=== PATIENT | male | born 1970 | race American Indian/Alaskan Native ===

== ENCOUNTER 2018-11-16 00:39 | Emergency (ER) | payer SELFPAY ==
[2018-11-16 01:38] LABS: Basophils % (Auto) 0.5 % (0.0-1.8); Eosinophils # (Auto) 0.3 K/mm3 (0.0-0.4); Eosinophils % (Auto) 5.6 % (0.0-4.3); Hematocrit 41.2 % (35.5-45.6); Lymphocytes # (Auto) 2.1 K/mm3 (1.2-5.4); Lymphocytes % (Auto) 40.6 % (13.4-35.0); Mean Corpuscular HGB Conc 34 % (32-34); Mean Corpuscular Volume 93 fl (84-94); Monocytes # (Auto) 0.5 K/mm3 (0.0-0.8); Monocytes % (Auto) 9.7 % (0.0-7.3); Platelet Count 250 K/mm3 (140-440); Red Blood Count 4.43 M/mm3 (3.65-5.03); Red Cell Distribution Width 13.5 % (13.2-15.2)
--- NOTE | 2018-11-16 01:39 | XRay Report ---
FINAL REPORT EXAM: XR CHEST ROUTINE 2V HISTORY: Shortness of breath TECHNIQUE: PA and lateral views of the chest were submitted. Comparison is made to the study of 01/2019. FINDINGS: The heart is mildly enlarged. The lungs are clear. There is no evidence of congestion or effusion. Sk eletal structures are well-maintained. IMPRESSION: No acute cardiopulmonary process.
[2018-11-16 01:58] LABS: BUN/Creatinine Ratio 11; Blood Urea Nitrogen 12 mg/dL (9-20); Calcium 9.2 mg/dL (8.4-10.2); Hemolysis Index 9
--- NOTE | 2018-11-16 02:59 | Emergency Department Report ---
ED General Adult HPI - General Chief complaint: Dyspnea/Respdistress Stated complaint: SOB,LEG PAIN Time Seen by Provider: 11/16/18 02:58 Source: patient Mode of arrival: Ambulatory Limitations: No Limitations - History of Present Illness Initial comments: Patient is a 48-year-old male who presents with shortness of breath at some golf last 3 days so complains of leg pain and abscess 6 out 10. Denies any nausea or vomiting he's also states that he has some shortness of breath on exertion. Patient states that he was admitted to the hospital for similar findings and he was not diagnosed with heart failure. Patient does not smoke or drink. Patient states that his pain as a 7 out of 10. It is an achy type of pain on walking makes it worse nothing makes it better. He states he has some slight swelling in his legs. - Related Data Previous Rx's Medication Instructions Recorded Last Taken Type Ciprofloxacin HCl [Ciprofloxacin 250 mg PO BID #20 tablet 11/03/18 Unknown Rx TAB] Zolpidem [Ambien] 5 mg PO QHS PRN #10 tablet 11/03/18 Unknown Rx traMADol [Ultram 50 MG tab] 50 mg PO Q6HR PRN #7 tablet 11/16/18 Unknown Rx Allergies Allergy/AdvReac Type Severity Reaction Status Date / Time No Known Allergies Allergy Unverified 10/31/18 21:37 ED Review of Systems ROS: Stated complaint: SOB,LEG PAIN Other details as noted in HPI Constitutional: denies: chills, fever Eyes: denies: eye pain, eye discharge, vision change ENT: denies: ear pain, throat pain Respiratory: shortness of breath. denies: cough, wheezing Cardiovascular: denies: chest pain, palpitations Endocrine: no symptoms reported Gastrointestinal: denies: abdominal pain, nausea, diarrhea Genitourinary: denies: urgency, dysuria Musculoskeletal: denies: back pain, joint swelling, arthralgia Skin: denies: rash, lesions Neurological: denies: headache, weakness, paresthesias Psychiatric: denies: anxiety, depression Hematological/Lymphatic: denies: easy bleeding, easy bruising ED Past Medical Hx - Past Medical History Hx Heart Attack/AMI: Yes Hx Congestive Heart Failure: No Hx Diabetes: No Hx Asthma: No Hx COPD: No - Surgical History Additional Surgical History: stent - Social History Smoking Status: Never Smoker Substance Use Type: None - Medications Home Medications: Home Medications Medication Instructions Recorded Confirmed Last Taken Type Ciprofloxacin HCl [Ciprofloxacin 250 mg PO BID #20 tablet 11/03/18 Unknown Rx TAB] Zolpidem [Ambien] 5 mg PO QHS PRN #10 tablet 11/03/18 Unknown Rx traMADol [Ultram 50 MG tab] 50 mg PO Q6HR PRN #7 tablet 11/16/18 Unknown Rx ED Physical Exam - General Limitations: No Limitations General appearance: alert, in no apparent distress - Head Head exam: Present: atraumatic, normocephalic - Eye Eye exam: Present: normal appearance - ENT ENT exam: Present: mucous membranes moist - Neck Neck exam: Present: normal inspection - Respiratory Respiratory exam: Present: normal lung sounds bilaterally. Absent: respiratory distress - Cardiovascular Cardiovascular Exam: Present: regular rate, normal rhythm. Absent: systolic murmur, diastolic murmur, rubs, gallop - GI/Abdominal GI/Abdominal exam: Present: soft, normal bowel sounds - Rectal Rectal exam: Present: deferred - Extremities Exam Extremities exam: Present: normal inspection - Back Exam Back exam: Present: normal inspection - Neurological Exam Neurological exam: Present: alert, oriented X3 - Psychiatric Psychiatric exam: Present: normal affect, normal mood - Skin Skin exam: Present: warm, dry, intact, normal color. Absent: rash ED Course Vital Signs 11/16/18 11/16/18 00:47 04:12 Temperature 97.7 F Pulse Rate 82 Respiratory 20 20 Rate Blood Pressure 123/84 O2 Sat by Pulse 96 100 Oximetry ED Medical Decision Making - Lab Data Result diagrams: 11/16/18 01:30 11/16/18 01:30 Lab Results 11/16/18 11/16/18 11/16/18 Range/Units 01:30 01:30 04:00 WBC 5.1 (4.5-11.0) K/mm3 RBC 4.43 (3.65-5.03) M/mm3 Hgb 14.0 (11.8-15.2) gm/dl Hct 41.2 (35.5-45.6) % MCV 93 (84-94) fl MCH 32 (28-32) pg MCHC 34 (32-34) % RDW 13.5 (13.2-15.2) % Plt Count 250 (140-440) K/mm3 Lymph % (Auto) 40.6 H (13.4-35.0) % [place] % (Auto) 9.7 H (0.0-7.3) % Eos % (Auto) 5.6 H (0.0-4.3) % Baso % (Auto) 0.5 (0.0-1.8) % Lymph # 2.1 (1.2-5.4) K/mm3 [place] # 0.5 (0.0-0.8) K/mm3 Eos # 0.3 (0.0-0.4) K/mm3 Baso # 0.0 (0.0-0.1) K/mm3 Seg Neutrophils % 43.6 (40.0-70.0) % Seg Neutrophils # 2.2 (1.8-7.7) K/mm3 Sodium 143 (137-145) mmol/L Potassium 3.7 (3.6-5.0) mmol/L Chloride 102.5 (98-107) mmol/L Carbon Dioxide 26 (22-30) mmol/L Anion Gap 18 mmol/L BUN 12 (9-20) mg/dL Creatinine 1.1 (0.8-1.5) mg/dL Estimated GFR > 60 ml/min BUN/Creatinine Ratio 11 % Glucose 145 H (75-100) mg/dL Calcium 9.2 (8.4-10.2) mg/dL Troponin T < 0.010 (0.00-0.029) ng/mL - EKG Data -: EKG Interpreted by Pa - EKG Data 11/16/18 05:01 KG shows normal sinus rhythm no ST segment elevation or T wave inversion normal axis - Radiology Data Radiology results: report reviewed, image reviewed Chest x-ray: Shows no acute cardiopulmonary disease - Medical Decision Making Chief medical diagnosis: Myalgia Differential medical diagnosis: Arrhythmia, electrolyte abnormality, congestive heart failure CBC, BMP, chest x-ray, troponin and oral pain medicine Patient's laboratory workup was unremarkable patient has no pitting edema and when he was admitted a couple weeks ago he was not diagnosed apart patient is feeling better I have discussed with patient the importance of following up with his underwriting account representative and a primary care doctor. Discussed palpation patient agrees with plan additional verbal discharge instructions were given. Critical care attestation.: If time is entered above; I have spent that time in minutes in the direct care of this critically ill patient, excluding procedure time. ED Disposition Clinical Impression: Leg pain Qualifiers: Laterality: bilateral Qualified Code(s): M79.604 - Pain in right leg; M79.605 - Pain in left leg Disposition: - TO HOME OR SELFCARE Is pt being admited?: No Does the pt Need Aspirin: No Condition: Stable Instructions: Arthralgia (ED) Prescriptions: traMADol [Ultram 50 MG tab] 50 mg PO Q6HR PRN #7 tablet PRN Reason: Pain Referrals: XAVI EMMANUEL MD [Primary Care Provider] - 3-5 Days
[2018-11-16] MEDS ORDERED: PERCOCET 5/325 PO ONE (03:26)
[2018-11-16] MEDS ORDERED: LANTUS SUB-Q ONE (04:03)
[2018-11-16 05:34] VITALS: BP 107/71
== END 2018-11-16 05:41 | disposition home or self-care (01) ==
LOC: ED 00:39
DX: M79.604 Pain in right leg (principal); M79.605 Pain in left leg; R06.02 Shortness of breath; I25.2 Old myocardial infarction
CPT/HCPCS: 36415; 71046; 80048; 84484; 85025; 93005; 93010

== ENCOUNTER 2019-09-12 17:51 | Emergency (ER) | payer SELFPAY ==
[2019-09-12] MEDS ORDERED: ASPIRIN 325 MG TAB PO ONE (18:21)
--- NOTE | 2019-09-12 19:43 | XRay Report ---
CHEST 2 VIEWS INDICATION / CLINICAL INFORMATION: Chest Pain. COMPARISON: 11/16/2018 FINDINGS: SUPPORT DEVICES: None. HEART / MEDIASTINUM: No significant abnormality. LUNGS / PLEURA: No significant pulmonary or pleural abnormality. No pneumothorax. ADDITIONAL FINDINGS: No significant additional findings. IMPRESSION: 1. No acute findings. Signer Name: Chad Dacosta MD Signed: 09/12/2019 7:38 PM Workstation Name: [id number]
[2019-09-12 20:03] LABS: Basophils # (Auto) 0.1 K/mm3 (0.0-0.1); Basophils % (Auto) 0.8 % (0.0-1.8); Eosinophils # (Auto) 0.3 K/mm3 (0.0-0.4); Eosinophils % (Auto) 3.7 % (0.0-4.3); Hematocrit 42.4 % (35.5-45.6); Hemoglobin 14.6 gm/dl (11.8-15.2); Lymphocytes # (Auto) 2.7 K/mm3 (1.2-5.4); Lymphocytes % (Auto) 35.5 % (13.4-35.0); Mean Corpuscular HGB Conc 35 % (32-34); Mean Corpuscular Volume 92 fl (84-94); Monocytes # (Auto) 0.8 K/mm3 (0.0-0.8); Monocytes % (Auto) 10.6 % (0.0-7.3); Platelet Count 269 K/mm3 (140-440); Red Blood Count 4.62 M/mm3 (3.65-5.03); Red Cell Distribution Width 13.6 % (13.2-15.2)
[2019-09-12 20:20] LABS: BUN/Creatinine Ratio 10; Blood Urea Nitrogen 15 mg/dL (9-20); Calcium 9.9 mg/dL (8.4-10.2); Hemolysis Index 37
--- NOTE | 2019-09-12 21:24 | Emergency Department Report ---
ED General Adult HPI - General Chief complaint: Dyspnea/Respdistress Stated complaint: CHEST PAIN/LEG PAIN Time Seen by Provider: 09/12/19 20:58 Source: patient Mode of arrival: Ambulatory Limitations: No Limitations - History of Present Illness Initial comments: 48-year-old male presents to ED with multiple complaints. Patient reports wheezing in his throat since yesterday. He denies sore throat, body aches, fever, cough, or history of asthma. He denies any difficulty breathing at this time. Patient also reports pain in bilateral knees times one month. Patient states the pain does not last very long, however he experiences the pain whenever he is from sitting to standing, or when he sits for long periods of time. Patient denies any knee pain currently. Patient also reports chest pain upon arriving to the ER that lasted for 30 minutes, currently resolved. He denies any associated shortness of breath, diaphoresis, nausea. Location: chest, left, right, lower extremity Quality: aching Consistency: intermittent Improves with: immobilization Associated Symptoms: chest pain, headaches. denies: cough, diaphoresis, fever/chills, nausea/vomiting, shortness of breath Treatments Prior to Arrival: none - Related Data Previous Rx's Medication Instructions Recorded Last Taken Type Ciprofloxacin HCl [Ciprofloxacin 250 mg PO BID #20 tablet 11/03/18 Unknown Rx TAB] Zolpidem [Ambien] 5 mg PO QHS PRN #10 tablet 11/03/18 Unknown Rx traMADoL [Ultram 50 MG tab] 50 mg PO Q6HR PRN #7 tablet 11/16/18 Unknown Rx Albuterol Sulfate [Proventil Hfa] 2 puff IH Q4HR PRN #1 hfa.aer.ad 09/12/19 Unknown Rx Naproxen [Naprosyn] 500 mg PO BID #20 tablet 09/12/19 Unknown Rx traMADoL [Ultram] 50 mg PO Q6HR PRN #7 tablet 09/12/19 Unknown Rx Allergies Allergy/AdvReac Type Severity Reaction Status Date / Time No Known Allergies Allergy Verified 09/12/19 18:21 ED Review of Systems ROS: Stated complaint: CHEST PAIN/LEG PAIN Other details as noted in HPI Comment: All other systems reviewed and negative Constitutional: denies: chills, fever ENT: denies: throat pain Respiratory: wheezing. denies: cough, shortness of breath Cardiovascular: chest pain Gastrointestinal: denies: abdominal pain, nausea, vomiting Musculoskeletal: arthralgia Neurological: headache ED Past Medical Hx - Past Medical History Hx Heart Attack/AMI: Yes Hx Congestive Heart Failure: No Hx Diabetes: No Hx Asthma: No Hx COPD: No - Surgical History Past Surgical History?: Yes Additional Surgical History: stent - Social History Smoking Status: Never Smoker Substance Use Type: None - Medications Home Medications: Home Medications Medication Instructions Recorded Confirmed Last Taken Type Ciprofloxacin HCl [Ciprofloxacin 250 mg PO BID #20 tablet 11/03/18 Unknown Rx TAB] Zolpidem [Ambien] 5 mg PO QHS PRN #10 tablet 11/03/18 Unknown Rx traMADoL [Ultram 50 MG tab] 50 mg PO Q6HR PRN #7 tablet 11/16/18 Unknown Rx Albuterol Sulfate [Proventil Hfa] 2 puff IH Q4HR PRN #1 hfa.aer.ad 09/12/19 Unknown Rx Naproxen [Naprosyn] 500 mg PO BID #20 tablet 09/12/19 Unknown Rx traMADoL [Ultram] 50 mg PO Q6HR PRN #7 tablet 09/12/19 Unknown Rx ED Physical Exam - General Limitations: No Limitations General appearance: alert, in no apparent distress - Head Head exam: Present: atraumatic, normocephalic - Eye Eye exam: Present: normal appearance, PERRL, EOMI - ENT ENT exam: Present: normal orophraynx, mucous membranes moist - Neck Neck exam: Present: normal inspection - Respiratory Respiratory exam: Present: normal lung sounds bilaterally. Absent: respiratory distress, wheezes, rales, rhonchi, stridor - Cardiovascular Cardiovascular Exam: Present: regular rate, normal rhythm - GI/Abdominal GI/Abdominal exam: Present: soft. Absent: distended, tenderness - Extremities Exam Extremities exam: Present: normal inspection, full ROM. Absent: joint swelling, calf tenderness - Neurological Exam Neurological exam: Present: alert, oriented X3. Absent: CN II-XII intact, motor sensory deficit - Psychiatric Psychiatric exam: Present: normal affect, normal mood - Skin Skin exam: Present: warm, dry, intact, normal color ED Course Vital Signs 09/12/19 09/12/19 09/12/19 18:19 21:25 21:29 Temperature 97.8 F Pulse Rate 101 H 85 Respiratory 18 18 18 Rate Blood Pressure 130/83 Blood Pressure 123/84 [Left] O2 Sat by Pulse 95 100 Oximetry 09/12/19 22:49 Temperature Pulse Rate 80 Respiratory 18 Rate Blood Pressure Blood Pressure 126/69 [Left] O2 Sat by Pulse 100 Oximetry ED Medical Decision Making - Lab Data Result diagrams: 09/12/19 19:51 09/12/19 19:51 - EKG Data -: EKG Interpreted by Me EKG shows normal: sinus rhythm, axis, intervals, QRS complexes Rate: normal - EKG Data When compared to previous EKG there are: no significant change (compared to Oct 2018) Interpretation: nonspecific ST-T wave yoly - Radiology Data Radiology results: report reviewed, image reviewed - Medical Decision Making - normal stress test Oct 2018 - EKG unremarkable, trop negative x 2 - chest pain resolved - pt in no resp distress, vitals are normal - prescriptions given - outpt f/u advised, return precautions given - Differential Diagnosis ACS, URI, arthritis Critical care attestation.: If time is entered above; I have spent that time in minutes in the direct care of this critically ill patient, excluding procedure time. ED Disposition Clinical Impression: Knee pain, URI (upper respiratory infection), Chest pain Disposition: - TO HOME OR SELFCARE Is pt being admited?: No Condition: Stable Instructions: Chest Pain (ED) Prescriptions: Naproxen [Naprosyn] 500 mg PO BID #20 tablet Albuterol Sulfate [Proventil Hfa] 2 puff IH Q4HR PRN #1 hfa.aer.ad PRN Reason: Wheezing traMADoL [Ultram] 50 mg PO Q6HR PRN #7 tablet PRN Reason: Pain Referrals: AUDREY STUART MD [Primary Care Provider] - 3-5 Days Time of Disposition: 22:09
[2019-09-12 22:49] VITALS: BP 126/69
== END 2019-09-12 22:49 | disposition home or self-care (01) ==
LOC: ED 17:51
DX: J06.9 Acute upper respiratory infection, unspecified (principal); M25.569 Pain in unspecified knee
CPT/HCPCS: 36415; 71046; 80048; 83880; 84484; 85025; 93005; 93010